=== PATIENT | male | born 1950 | race Caucasian/White ===

== ENCOUNTER → 2016-08-27 | Outpatient (CLI) | payer OTHER | LOC: MMPC 11:11 | PROVIDERS: ATTEND Surgery | DX: Z86.010 Personal history of colon polyps (principal) | CPT/HCPCS: 99202; G0463 ==

== ENCOUNTER → 2016-08-31 | Outpatient (CLI) | payer OTHER | LOC: MMPC 10:00 | PROVIDERS: ATTEND Orthopaedic Surgery | DX: Z47.89 Encounter for other orthopedic aftercare (principal) ==

== ENCOUNTER 2016-09-04 10:29 | Day surgery (SDC) | payer OTHER ==
[~2016-09-04 10:29] MED LIST: LIDOCAINE W/ SODIUM BICARB 0.5 ML SYR ONE; Lactated Ringers 1,000 ML PRIMARY IV ONE; fentaNYL Inj 100 MCG/2 ML VIAL ONE
--- NOTE | 2016-09-04 11:42 | GEN.OPNOTE ---
Colonoscopy Procedure Note Surgery Date: 09/04/16 Preoperative Diagnosis: Personal history of adenomatous colon polyp. Postoperative Diagnosis: Same. New polyp in the right colon. Procedure: Complete colonoscopy with hot snare polypectomy of a right colon polyp. Surgeon: Panchito Lozano MD Anesthesia Provider: Ever Cordero CRNA Anesthesia Type: MAC Indications: See preoperative diagnosis. Patient had a sessile serrated adenoma in his cecum. He had been recommended to have a follow-up colonoscopy in 3 years and he is here for the same. Findings: Prep : [Good] Cecum : [Normal] Ascending : [Polyp, sessile. Hot snare polypectomy performed] Transverse : [Normal] Sigmoid : [Normal] Rectum : [Normal] Digital Rectal Exam : [Mild hemorrhoids. Prostate enlarged but nonnodular.] A lubricated flexible colonoscope was inserted and passed to the blind end of the cecum. The appendiceal orifice and ileocecal valve were clearly seen. Air was aspirated as the scope was withdrawn. The cecum and ileocecal valve were unremarkable. In the right colon was a sessile polyp. It was encircled with a hot snare and excised. The specimen was retrieved. The remainder of the colonoscopy was normal without polyp, tumor, neoplastic mass, infectious or inflammatory process. The scope was withdrawn completing the procedure. The patient tolerated the procedure well without complication. He was taken to outpatient surgery in stable condition. Follow-up will be with my office on an as-needed basis. We will call the biopsy results when available and plan therapy and follow-up accordingly.
[2016-09-04 12:17] VITALS: RESP 16
[2016-09-04 12:20] VITALS: TEMP 98
== END 2016-09-04 12:22 | disposition home or self-care (01) ==
LOC: SDSC 10:29
PROVIDERS: ATTEND Surgery
DX: Z86.010 Personal history of colon polyps (principal); K63.5 Polyp of colon
CPT/HCPCS: 45385; J2704; J3010; J7120

== ENCOUNTER → 2016-09-28 | Outpatient (CLI) | payer OTHER | LOC: MMPC 10:00 | PROVIDERS: ATTEND Orthopaedic Surgery | DX: Z47.89 Encounter for other orthopedic aftercare (principal) ==

== ENCOUNTER → 2016-12-09 | Outpatient (CLI) | payer OTHER ==
[2016-12-09 08:32] LABS: CHOL/HDL RATIO 2.74 RATIO (0-4.0)
[2016-12-09 08:37] LABS: BLOOD UREA NITROGEN 16 mg/dL (7-22); BUN/CREATININE RATIO 17.77 (6-20); CALCIUM 9.3 mg/dL (8.7-10.7); EST GLOMERULAR FILTRATION > 60 (>60 ml/min/1.73m(2))
== END ==
LOC: LAB 07:43
PROVIDERS: ATTEND Internal Medicine
DX: E78.5 Hyperlipidemia, unspecified (principal); I10 Essential (primary) hypertension; Z95.1 Presence of aortocoronary bypass graft
CPT/HCPCS: 36415; 80053; 80061; 82550

== ENCOUNTER 2016-12-16 17:49 | Emergency (ER) | payer OTHER ==
[2016-12-16] MEDS ORDERED: KETOROLAC 15 MG/1 ML VIAL IVP ONE (18:02)
[2016-12-16] MEDS ORDERED: Sodium Chloride 0.9% 1,000 ML PRIMARY IV ONE (18:02)
--- NOTE | 2016-12-16 18:07 | PDOC ---
Lower Extremity Injury HPI - General Chief Complaint: Lower Extremity Problem/Injury Stated Complaint: RIGHT KNEE PAIN, SWELLING Date Seen by Provider: 12/16/16 Time Seen by Provider: 18:02 Source: POSITIVE: Patient, Spouse Exam Limitations: POSITIVE: No limitations Nurse's Notes Reviewed & Considered: Yes - History of Present Illness Initial Comments: Patient comes in today with chief complaint of right knee pain. Patient was playing golf last week down in [place] when he developed swelling and pain in his right knee. He was seen at a hospital in [place], x-rays were taken, and he returned home yesterday. He has been ambulatory up until this afternoon. Patient sat down approximately 3 PM and afterwards has been unable to bear weight. He denies any headache, no sore throat, no chest pain, no shortness of breath, no cough, no fever chills or sweats, no nausea vomiting or diarrhea, no myalgias. He does have swelling and decreased range of motion secondary to pain in his right knee. Have you received a tetanus shot in the past 10 years?: No Body Location Affected: REPORTS: Lower Extremity (R) Timing: REPORTS: Abrupt Duration: <1 week Severity: Severe Quality: REPORTS: "Pain", Sharpness, Stabbing, Throbbing, Tenderness Location at Time of Onset: REPORTS: Other (Golf course) Context of Injury: REPORTS: Other (No known trauma.) Location of Injury: REPORTS: Knee (R) Modifying Factors: improves with: Walking, Movement, Rest, Ice Associated Symptoms: REPORTS: Unable to Bear Weight Any Prior Injuries Related to Current Complaint?: No - Patient Home Medications Home Medications: Home Medications Calcium Carbonate/Vitamin D3 [Calcium 600-Vit D3 200 Tablet] 1 each PO BID 12/02 Multivitamin [Daily Vitamin] 1 tab ORAL QD tab 12/03/11 Aspirin [Aspir-Low] 1 tab ORAL QD tab 03/07/12 Ascorbic Acid [Vitamin C] 1 tab PO DAILY 07/19/13 Esomeprazole Magnesium [Nexium 24Hr] 2 cap PO QD #60 cap 06/22/14 Glucosa Butler 2Kcl/Chondroitin Butler [Glucosamine & Chondroitin Cap] 1 each PO DAILY cap 12/24/14 Cyanocobalamin (Vitamin B-12) [Vitamin B-12] 1,000 mcg PO DAILY 05/27/15 Atorvastatin Calcium [Lipitor] 1 tab PO QHS #90 tab 12/09/16 Losartan Potassium 0.5 tab PO BID #45 tab 12/09/16 Metoprolol Tartrate 1 tab PO BID #180 tab 12/09/16 Hydrocodone/Acetaminophen [Hydrocodon-Acetaminoph 7.5-325] 1 - 2 tab PO Q4H PRN #60 tab 12/16/16 - Patient Allergies Allergies/Adverse Reactions: Allergies Allergy/AdvReac Type Severity Reaction Status Date / Time ranitidine HCl [From Zantac] Allergy Intermediate THROAT Verified 12/16/16 18:22 SWELLING Past Medical History - heen HEENT History: Hard of Hearing, Dentures/Partials, Other (please comment) Additional HEENT History: 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 Cardiovascular History: Hypertension, Previous VA, Arrhythmia, Valvular Heart Disease, Hyperlipidemia Additional Cardiovasular History: HAD VA IN AUG 2011 VESSEL BYPASS, MITRAL VALVE REPLACEMENT AND MAZE PROCEDURE FOR PSVT/ NO CHEST PAIN SINCE CABG/ PSVT X3 Respiratory History: Snoring Gastrointestinal History: GERD, Hiatal Hernia Genitourinary History: Denies History Endocrine History: Denies History Musculoskeletal History: Arthritis, Back Pain, Limited ROM, Joint Pain Prosthesis or Implant: No (CERVICAL C5-6, L5-S1 FUSION AND RIGHT TKA) Additional Musculoskeletal History: LEFT FOOT DROP Neurological History: Denies History Additional Neurological History: ?tia today 06/12/15 Blood Disorders: Denies History Additional Blood Disorders History: Pt. was on coumadin for intermittent a-fib- PT STATES IT WAS PSVT. Not presently on any anticoagulants. Psychiatric History: Denies History History of Sexually Transmitted Diseases: No Cancer History: Other (please comment) Cancer Treatment / Date(s) of Treatment: 2007 History of MDRO: No History of Other Communicable Diseases: No Alcohol Use: None Substance Use Type: None Previous Surgical History: Yes Type / Date of Surgery: VASECTOMY/ ETHEL/ COLONOSCOPY/ CABG/ EGD/ LAMI/ MITRAL VALVE / R KNEE SCOPE/ L RCR/ NECK FUSION / L4-5 DISCECTOMY / L5 S1 FUSION - 2005. TOTAL R KNEE 2014. 02/21 RIGHT FOOT INFECTION I&D Anesthesia Reactions: No Malignant Hyperthermia: No Significant Family History: No pertinent family hx ROS - Limitations ROS Limitations: No Limitations Constitution: REPORTS: Denies Symptoms Cardiovascular: REPORTS: Denies Cardiac Symptoms Respiratory: REPORTS: Denies Resp Symptoms Neurological: REPORTS: Denies Neuro Symptoms Gastrointestinal: REPORTS: Denies GI Symptoms Endocrine: REPORTS: Denies Symptoms Musculoskeletal: REPORTS: Joint Pain (Right knee), Lower Extremity Swelling ( Right knee swelling) Genitourinary: REPORTS: Denies Symptoms Eyes: REPORTS: Denies Symptoms ENT: REPORTS: Denies Symptoms Skin: REPORTS: Denies Skin Symptoms Lympathic: REPORTS: Denies Lympathic Symptoms Immunologic: POSITIVE: Denies Symptoms Psychiatric: POSITIVE: Denies Psych Symptoms Lower Ext Complaint Exam - General Appearance General Appearance: POSITIVE: Alert, Cooperative, No Acute Distress - Extremities Lower Extremity: POSITIVE: Normal Color, Skin Intact, Soft Tissue Tenderness ( Right knee), Swelling Gait: POSITIVE: Unable to Bear Weight Neurovascular/Tendon: POSITIVE: Sensation Normal, Motor Normal, No Vascular Compromise Skin: POSITIVE: Warm, Dry - HEENT HEENT: POSITIVE: Head Inspection Nml, Eyes Inspection Nml, Ears Inspection Nml, Nose Inspection Nml, PERRL, EOMI - Neck / Back Neck/Back: POSITIVE: Normal Inspection, Non-Tender, Painless ROM - Respiratory / CVS Respiratory / CVS: POSITIVE: Chest Non Tender, No Ecchymosis, Breath Sounds Normal, No Respiratory Distress, Heart Sounds Normal, Regular Rate/Rhythm - Abdomen Abdomen: Soft: (All Quadrants), Normal Bowel Sounds: (All Quadrants), Denies Tenderness: (All Quadrants), No Splenomegaly: (All Quadrants) Lower Ext Complaint Progress - Results Reviewed by me Xrays/CTs/US Reviewed by me: Yes Lab Results Reviewed: Yes Lab Results:: Laboratory Results 12/16/16 Range/Units 18:35 WBC 6.18 (4.8-10.8) 10^3/uL RBC 4.88 (4.70-6.10) 10^6/uL Hgb 14.3 (14.0-18.0) g/dL Hct 42.3 (42.0-52.0) % MCV 86.7 (80-90) FL MCH 29.3 (27-31) PG MCHC 33.8 (33-37) g/dL RDW Std Deviation 43.0 (39-50) fL RDW Coeff of Rachel 14.0 (11.5-14.5) % Plt Count 152 (140-350) 10*3/uL MPV 11.5 (7.4-12.2) FL Immature Gran % (Auto) 0.2 (0-5) % Neut % (Auto) 72.3 (50-80) % Lymph % (Auto) 13.8 (10-50) % [place] % (Auto) 9.9 (5-15) % Eos % (Auto) 3.6 (0-8) % Baso % (Auto) 0.2 (0-1) % Immature Gran # (Auto) 0.01 10*3/UL Neut # (Auto) 4.48 10*3/UL Lymph # (Auto) 0.85 10*3/uL [place] # (Auto) 0.61 (0.3-0.8) 10*3/UL Eos # (Auto) 0.22 10*3/UL Baso # (Auto) 0.01 10*3/UL WBC Morphology Comment Normal morphology (NORM) Plt Morphology Comment Normal morphology (NORM) RBC Morph Comment Normal morphology (NORM) ESR 2 (0-15) MM/HR Sodium 138 (135-145) meq/L Potassium 3.7 L (3.8-5.2) meq/L Chloride 102 (98-112) meq/L Carbon Dioxide 25 (23-33) meq/L Anion Gap 11 (5-20) BUN 10 (7-22) mg/dL Creatinine 0.9 (0.70-1.50) mg/dL Estimated GFR > 60 (>60 ml/min/1.73m(2)) BUN/Creatinine Ratio 11.11 (6-20) Glucose 98 (78-110) mg/dL Calculated Osmolality 284.0 (267-292) mOsm/kg Uric Acid 4.6 (3.8-8.5) mg/dl Calcium 8.7 (8.7-10.7) mg/dL Magnesium 1.8 (1.6-2.4) mg/dL Total Bilirubin 1.5 H (0.3-1.2) mg/dL AST 22 (21-57) IU/L ALT 39 (21-72) IU/L Alkaline Phosphatase 68 (38-126) IU/L C-Reactive Protein 0.6 (0.0-0.9) mg/dL Total Protein 6.6 (6.1-8.0) g/dL Albumin 3.8 (3.5-4.8) g/dL Globulin 2.8 (2.50-4.10) g/dL Albumin/Globulin Ratio 1.30 (1.3-2.0) mg/g - Patient's Progress Pain Medication Addressed: POSITIVE: Yes Re-Examine Time:: 19:30 Status: POSITIVE: Improved MDM / ED Course: Patient was examined, an IV started, blood drawn and sent to the lab for studies , review of radiographic studies done in [place] were done by me. Patient received a liter of normal saline, IV Toradol, and Zofran. His pain significantly improved. Findings: Comprehensive metabolic panel is within normal limits, CRP is 0.6, CBC shows a normal white count. Uric acid is normal. Erythrocyte sedimentation rate is pending. Review of his x-ray per my review shows some lucency around the femoral portion of the total knee prosthesis. Assessment: Knee pain with joint effusion. Plan: Discharge home, crutches and bear weight as tolerated, ice, elevation, and NSAIDs. Follow-up with Dr. Perdue's clinic tomorrow. - Consult Counseled: POSITIVE: Patient, Family, RE: Lab Results, RE: Radiology Results, RE : DX, RE: Need for F/U Patient Care Time - Estimated PCT Patient Care Time (In Minutes): 30 Vital Signs - Recent Vital Signs Vital Signs: Vital Signs (Last 8 hours) Temp Pulse Resp BP Pulse Ox 12/16/16 17:51 97.3 F 65 18 145/98 98 - VS Reviewed Vital Signs Reviewed: Yes Discharge Clinical Impression: Joint effusion of lower extremity Discharge Disposition: Discharged to Home Condition: Stable Patient Instructions Given at Discharge: Swollen Knee Joint (ED)
[2016-12-16 18:25] VITALS: RESP 18; TEMP 97.3
[2016-12-16 18:41] LABS: BASOPHILS # (AUTO) 0.01 10*3/UL; BASOPHILS % (AUTO) 0.2 % (0-1); EOSINOPHILS # (AUTO) 0.22 10*3/UL; EOSINOPHILS % (AUTO) 3.6 % (0-8); HEMATOCRIT 42.3 % (42.0-52.0); HEMOGLOBIN 14.3 g/dL (14.0-18.0); LYMPHOCYTES # (AUTO) 0.85 10*3/uL; MEAN CORPUSCULAR HEMOGLOBIN 29.3 PG (27-31); MEAN CORPUSCULAR HGB CONC 33.8 g/dL (33-37); MEAN CORPUSCULAR VOLUME 86.7 FL (80-90); MEAN PLATELET VOLUME 11.5 FL (7.4-12.2); MONOCYTES # (AUTO) 0.61 10*3/UL (0.3-0.8); MONOCYTES % (AUTO) 9.9 % (5-15); NEUTROPHILS # (AUTO) 4.48 10*3/UL; NEUTROPHILS % (AUTO) 72.3 % (50-80); RED BLOOD COUNT 4.88 10^6/uL (4.70-6.10)
[2016-12-16 18:47] LABS: PLATELET MORPHOLOGY COMMENT NORMAL MORPHOLOGY (NORM); RBC MORPHOLOGY COMMENT NORMAL MORPHOLOGY (NORM); WBC MORPHOLOGY COMMENT NORMAL MORPHOLOGY (NORM)
[2016-12-16 18:53] LABS: BLOOD UREA NITROGEN 10 mg/dL (7-22); BUN/CREATININE RATIO 11.11 (6-20); C-REACTIVE PROTEIN 0.6 mg/dL (0.0-0.9); CALCIUM 8.7 mg/dL (8.7-10.7); EST GLOMERULAR FILTRATION > 60 (>60 ml/min/1.73m(2)); MAGNESIUM 1.8 mg/dL (1.6-2.4); SERUM ALBUMIN 3.8 g/dL (3.5-4.8); URIC ACID 4.6 mg/dl (3.8-8.5)
[2016-12-16 19:21] LABS: ERYTHROCYTE SEDIMENTATION RATE 2 MM/HR (0-15)
== END 2016-12-16 19:52 | disposition home or self-care (01) ==
LOC: ER 17:49
DX: M25.461 Effusion, right knee (principal); R22.41 Localized swelling, mass and lump, right lower limb; M25.561 Pain in right knee
CPT/HCPCS: 80053; 83735; 84550; 85025; 85652; 86140; 96374; 99283; J1885; J7030

== ENCOUNTER → 2016-12-17 | Outpatient (CLI) | payer OTHER | LOC: MMPC 10:00 | PROVIDERS: ATTEND Physician Assistant | DX: T84.032A Mechanical loosening of internal right knee prosthetic joint, initial encounter (principal); M25.461 Effusion, right knee; M25.561 Pain in right knee | CPT/HCPCS: 20610 ×2; 99212; G0463 ==

== ENCOUNTER → 2016-12-25 | Outpatient (CLI) | payer OTHER ==
--- NOTE | 2016-12-27 15:14 | DI ---
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 Previous Exam: Dec 15 2016 Radiopharmaceutical: 30.0 mCi of technetium 99m MDP Findings: Multiple images are obtained during the flow, blood pool and delayed images through the knees and thr ough the entire skeleton on the delayed images. There is increased flow and increased blood pool within the right knee. Articular region. There is some increased blood pool noted within both knees which is much more pronounced within the r ight knee. Delayed images demonstrate focal increased uptake within the shoulders wrists, left knee and first me tatarsophalangeal joints. There is also some contamination noted over the genitalia. There is some increased uptake involving the L5/S1 level predominantly involving the posterior articu lating facets. Impression: Increased uptake within the right knee on all 3 phases most consistent with reactive marrow. This cou ld be due to an infection or hardware loosening. Correlate clinically. Degenerative changes within the wrists and first metatarsophalangeal joints in a pattern most consist ent with degenerative osteoarthritis.
== END ==
LOC: NM 11:40
PROVIDERS: ATTEND Physician Assistant
DX: T84.032D Mechanical loosening of internal right knee prosthetic joint, subsequent encounter (principal); M25.461 Effusion, right knee; Z96.651 Presence of right artificial knee joint; Z98.890 Other specified postprocedural states
CPT/HCPCS: 78306; 78315; A9503

== ENCOUNTER → 2017-01-08 | Outpatient (CLI) | payer OTHER | LOC: MMPC 10:00 | PROVIDERS: ATTEND Orthopaedic Surgery | DX: T84.012D Broken internal right knee prosthesis, subsequent encounter (principal) | CPT/HCPCS: 99214 ==

== ENCOUNTER → 2017-01-12 | Outpatient (CLI) | payer OTHER | LOC: MMPC 10:00 | PROVIDERS: ATTEND Orthopaedic Surgery | DX: M25.561 Pain in right knee (principal); T84.012D Broken internal right knee prosthesis, subsequent encounter; Z96.651 Presence of right artificial knee joint | CPT/HCPCS: 20610; G0463; 99213 ==